=== PATIENT | female | born 1960 | race Caucasian/White ===

== ENCOUNTER → 2016-07-27 | Outpatient (CLI) | payer OTHER ==
[~2016-07-27] MED LIST: KEFLEX500 M1 PO; PERCOCET 325 MG1 TA2 PO
== END | disposition home or self-care (01) ==
LOC: US 12:11
DX: D25.1 Intramural leiomyoma of uterus (principal); N95.0 Postmenopausal bleeding; R93.8 Abnormal findings on diagnostic imaging of other specified body structures

== ENCOUNTER 2018-08-29 13:37 | Emergency (ER) | payer OTHER ==
[~2018-08-29] VITALS: Ht 162.5 cm; Wt 79.4 kg
[2018-08-29] MEDS ORDERED: Motrin,Rufen800 MG PO (16:52)
== END 2018-08-29 16:58 | disposition home or self-care (01) ==
LOC: ED 13:37
DX: S52.122A Displaced fracture of head of left radius, initial encounter for closed fracture (principal); S90.31XA Contusion of right foot, initial encounter; Z79.2 Long term (current) use of antibiotics; W01.0XXA Fall on same level from slipping, tripping and stumbling without subsequent striking against object, initial encounter; Y93.01 Activity, walking, marching and hiking; Y92.89 Other specified places as the place of occurrence of the external cause; Y99.8 Other external cause status

== ENCOUNTER → 2023-01-09 | Outpatient (CLI) | payer OTHER ==
[~2023-01-09] MED LIST changes: +Motrin,Rufen800 MG PO
== END | disposition home or self-care (01) ==
LOC: CARD 08:30
PROVIDERS: ATTEND Internal Medicine Cardiovascular Disease
DX: I34.0 Nonrheumatic mitral (valve) insufficiency (principal)